=== PATIENT | female | born 1990 | race Caucasian/White ===

== ENCOUNTER 2018-12-20 18:48 | Emergency (ER) | payer MEDICAID, OTHER ==
[~2018-12-20] VITALS: Ht 154.9 cm; Wt 10.0 kg
[~2018-12-20 18:48] MED LIST: AZIT200S43; HYDR118S; LEVO300T27 PO; NORG1TAB PO
[2018-12-20] MEDS ORDERED: ALBU18HF2 INH (19:23)
[2018-12-20 19:36] VITALS: BP 125/77
== END 2018-12-20 19:41 | disposition home or self-care (01) ==
LOC: ER 18:48
DX: R05 Cough (principal); R09.89 Other specified symptoms and signs involving the circulatory and respiratory systems; R11.2 Nausea with vomiting, unspecified; R07.89 Other chest pain; R51 Headache; N95.1 Menopausal and female climacteric states; R68.83 Chills (without fever); Z98.890 Other specified postprocedural states; Z88.8 Allergy status to other drugs, medicaments and biological substances; Z79.899 Other long term (current) drug therapy
CPT/HCPCS: 99283

== ENCOUNTER 2019-04-09 12:47 | Emergency (ER) | payer SELFPAY ==
[~2019-04-09] VITALS: Ht 154.9 cm; Wt 110.0 kg
[~2019-04-09 12:47] MED LIST changes: +ALBU18HF2 INH
[2019-04-09 13:44] LABS: BASOPHILS # (AUTO) 0.1 X10'3 (0-0.2); BASOPHILS % (AUTO) 1.2 % (0-1); EOSINOPHILS # (AUTO) 0.1 X10'3 (0-0.9); EOSINOPHILS % (AUTO) 2.3 % (0-6); HEMATOCRIT 33.1 % (35.0-45.0); HEMOGLOBIN 10.9 g/dl (12.0-16.0); LYMPHOCYTES # (AUTO) 0.9 X10'3 (1.1-4.8); LYMPHOCYTES % (AUTO) 17.3 % (21-51); MEAN CORPUSCULAR HEMOGLOBIN 26.7 PG (27.0-31.0); MEAN CORPUSCULAR HGB CONC 32.9 g/dL (33.0-36.5); MEAN CORPUSCULAR VOLUME 81.1 FL (78-98); MEAN PLATELET VOLUME 8.2 FL (7.4-10.4); MONOCYTES # (AUTO) 0.6 X10'3 (0-0.9); MONOCYTES % (AUTO) 10.7 % (2-12); NEUTROPHILS # (AUTO) 3.7 X10'3 (1.8-7.7); NEUTROPHILS % (AUTO) 68.5 % (42-75); PLATELET COUNT 285 X10'3 (140-440); RED BLOOD COUNT 4.08 X10'6 (4.20-5.60); RED CELL DISTRIBUTION WIDTH 14.7 % (11.5-14.5); WHITE BLOOD COUNT 5.4 X10'3 (4.5-11.0)
[2019-04-09 13:57] LABS: ALANINE AMINOTRANSFERASE 16 U/L (12-78); ALBUMIN 3.5 G/DL (3.4-5.0); ALKALINE PHOSPHATASE 82 IU/L (46-116); ANION GAP 8 (8-16); ASPARTATE AMINO TRANSFERASE 15 U/L (10-37); BILIRUBIN,TOTAL 0.3 MG/DL (0.1-1.0); BLOOD UREA NITROGEN 7 MG/DL (7-18); CALCIUM 8.8 MG/DL (8.5-10.1); CHLORIDE 108 MMOL/L (99-107); CREATININE 0.88 MG/DL (0.40-0.90); GLUCOSE 88 MG/DL (70-104); LIPASE 81 U/L (73-393); POTASSIUM 3.6 MMOL/L (3.5-5.1); SODIUM 141 MMOL/L (135-145); TOTAL CARBON DIOXIDE 25.3 MMOL/L (24-32); TOTAL PROTEIN 6.9 G/DL (6.4-8.2); eGFR 77 ML/MIN
[2019-04-09] MEDS ORDERED: normal saline 1000ML IV soln IVB ONE (14:35)
[2019-04-09] MEDS ORDERED: ondansetron/PF 4mg/2ml inj IV ONE (15:05)
[2019-04-09 15:29] LABS: HCG SERUM QL NEGATIVE
[2019-04-09] MEDS ORDERED: ONDA4TAB6 PO (15:35)
--- NOTE | 2019-04-09 16:31 | NUR ---
2nd liter infusing w/o, pt is resting quietly on gurney, resp even and unlabored
[2019-04-09 18:55] VITALS: BP 150/60
== END 2019-04-09 18:57 | disposition home or self-care (01) ==
LOC: ER 12:48
DX: J06.9 Acute upper respiratory infection, unspecified (principal); R11.2 Nausea with vomiting, unspecified; Z88.8 Allergy status to other drugs, medicaments and biological substances; Z79.899 Other long term (current) drug therapy
CPT/HCPCS: 36415; 80053; 83690; 84703; 85025; 96361; 96374; 99283; J2405; J7030

== ENCOUNTER 2019-06-06 11:26 | Emergency (ER) | payer OTHER ==
[~2019-06-06] VITALS: Ht 162.6 cm; Wt 102.5 kg
[~2019-06-06 11:26] MED LIST changes: +ONDA4TAB6 PO
[2019-06-06 11:57] VITALS: BP 133/74
== END 2019-06-06 12:40 | disposition home or self-care (01) ==
LOC: ER 11:26
DX: J01.90 Acute sinusitis, unspecified (principal); J02.9 Acute pharyngitis, unspecified; F17.200 Nicotine dependence, unspecified, uncomplicated; Z98.890 Other specified postprocedural states; Z88.8 Allergy status to other drugs, medicaments and biological substances; Z79.2 Long term (current) use of antibiotics; Z79.899 Other long term (current) drug therapy
CPT/HCPCS: 99281

== ENCOUNTER 2019-06-20 18:51 | Emergency (ER) | payer OTHER ==
[~2019-06-20] VITALS: Ht 154.9 cm; Wt 100.0 kg
[2019-06-20] MEDS ORDERED: erythromycin ophthalmic ointment 1gm tube LEFTEYE ONE (20:00)
[2019-06-20 20:12] VITALS: BP 127/86
== END 2019-06-20 20:13 | disposition home or self-care (01) ==
LOC: ER 18:52
DX: H10.9 Unspecified conjunctivitis (principal); Z88.8 Allergy status to other drugs, medicaments and biological substances; Z79.899 Other long term (current) drug therapy
CPT/HCPCS: 99283